=== PATIENT | female | born 1950 | race Caucasian/White ===

== ENCOUNTER → 2017-11-19 | Outpatient (CLI) | payer MEDICARE, OTHER ==
[~2017-11-19] MED LIST: AMIT-104 PO; BEN20 PO; EST1 PO; FLU10 PO; HYOS0.375 PO; MULT-770 PO; PAN40 PO; PER PO
--- NOTE | 2017-11-20 15:30 | RADIOLOGY IMAGING REPORT ---
FACILITY: [facility] - [place] PATIENT NAME: MARTA GAN : [id number] MR: [id number] V: [id number] EXAM DATE: [id number] ORDERING PHYSICIAN: SUSANNE SRINIVASAN TECHNOLOGIST: Kay Levy PROCEDURE:BILATERAL DIGITAL SCREENING MAMMOGRAM WITH CAD ASSISTED INTERPRETATION AND 3D BREAST TOMOSYNTHESIS. COMPARISON:Prior mammograms dated 11/14/16, 10/23/16, 10/16/15, 10/06/14, 04/12/13 and 04/10/12. INDICATIONS:SCREENING FINDINGS: Moderately dense fibroglandular tissue is seen throughout the breasts. The parenchymal pattern has remained stable when allowing for difference in mammographic technique and patient positioning. There is no evidence of malignant appearing mass, malignant appearing calcification or other secondary sign of malignancy in either breast. DIAGNOSTIC CATEGORY 1--NEGATIVE. RECOMMENDATIONS: ROUTINE MAMMOGRAM AND CLINICAL EVALUATION. IMPRESSION: Bi-RADS 1: No significant abnormality is seen. Images were reviewed with R2CAD and 3D breast tomosynthesis. Dictated by: Guadalupe Huber M.D. on 11/19/2017 at 15:35 Transcribed by: NICOLE on 11/19/2017 at 18:52 Approved by: Guadalupe Huber M.D. on 11/20/2017 at 15:29 [facility]
== END ==
LOC: MAMO 01:36
PROVIDERS: ATTEND Obstetrics & Gynecology
DX: Z12.31 Encounter for screening mammogram for malignant neoplasm of breast (principal)
CPT/HCPCS: 77063; 77067

== ENCOUNTER → 2017-12-09 | Outpatient (CLI) | payer MEDICARE, OTHER ==
--- NOTE | 2017-12-09 14:10 | RADIOLOGY IMAGING REPORT ---
FACILITY: [facility] - [place] PATIENT NAME: Christina Robison : 1950 MR: [id number] V: [id number] EXAM DATE: ORDERING PHYSICIAN: OSWALDO MARTINEZ TECHNOLOGIST: Location: [facility] - [place] Patient: Christina Robison : 1950 Visit/Account:[id number] Date of Sevice: 12/09/2017 Exam type: CHEST PA AND LAT History: Lung mass, pain left side when lying down, nonsmoker Comparison: None. Findings: There is a large ovoid space-occupying process along the posterior medial left lower thorax consisten t with the clinical history of a lung mass. There is blunting of the left costophrenic angle consist ent with left pleural effusion versus pleural thickening. The left hilum appears somewhat prominent. The right lung appears well aerated. The cardiac silhouette is normal in size. There are moderate spondylotic changes of the thoracic spine. IMPRESSION: 1. There is a large ovoid space-occupying process along the posterior medial left lower thorax consi stent with the clinical history of a lung mass. CT of the chest recommended for further evaluation Report Dictated By: Guadalupe Huber MD at 12/09/2017 2:02 PM Report E-Signed By: Guadalupe Huber MD at 12/09/2017 2:05 PM WSN:[email or web address]
== END ==
LOC: RAD 12:04
PROVIDERS: ATTEND Internal Medicine
DX: R91.8 Other nonspecific abnormal finding of lung field (principal)
CPT/HCPCS: 71046